=== PATIENT | female | born 1970 | race Caucasian/White ===

== ENCOUNTER 2024-06-01 06:40 | Day surgery (SDC) | payer OTHER ==
[2024-05-26 10:31] VITALS: BP 127/82
[~2024-06-01] VITALS: Ht 157.5 cm; Wt 83.9 kg
[~2024-06-01 06:40] MED LIST: AMLODIPINE; DIOVAN320 MG PO; METFORMIN HCL500 M4 PO
[2024-06-01] MEDS ORDERED: CEFAZOLIN SODIUM 1,000 MG VIAL IV ONE (13:30)
[2024-06-01] MEDS ORDERED: CEFAZOLIN SODIUM 1,000 MG VIAL IV SCH (14:15)
== END 2024-06-01 17:00 | disposition home or self-care (01) ==
LOC: CIR.AMB 06:40 → EDBD 08:00 → CIR.AMB 09:30
PROVIDERS: ATTEND Specialist
DX: D24.1 Benign neoplasm of right breast (principal); N60.81 Other benign mammary dysplasias of right breast; D48.61 Neoplasm of uncertain behavior of right breast